=== PATIENT | male | born 1995 | race Caucasian/White ===

== ENCOUNTER 2022-12-14 09:35 | Emergency (ER) | payer BC, MEDICAID, SELFPAY ==
[2022-12-14 10:04] VITALS: BP 120/80; PULSE 70; RESP 18; TEMP 36.9; O2SAT 98; BMI 20.2
[2022-12-14 10:35] LABS: Basophils % 0.2 %; Eosinophils # 0.1 10^3/uL (0.0-0.8); Eosinophils % 0.9 %; Hematocrit 47.9 % (37-53); Lymphocytes # 2.4 10^3/uL (0.8-4.8); Lymphocytes % 23.2 %; Mean Corpuscular Hemoglobin 32.7 pg (27-33); Monocytes # 0.5 10^3/uL (0.2-0.9); Monocytes % 4.8 %; Neutrophils # 7.31 10^3/uL (1.8-7.7); Neutrophils % 70.5 %; Nucleated Red Blood Cells % 0 %; Platelet Count 269 10^3/cmm (157-399); Red Blood Count 4.99 10^6/uL (3.85-5.65); Red Cell Distribution Width 12.4 % (12.1-15.1); White Blood Count 10.36 10^3/uL (3.29-11.43)
[2022-12-14 10:51] LABS: Alanine Aminotransferase 17 U/L (0-41); Alkaline Phosphatase 85 U/L (40-130); Anion Gap 14.5 (5-19); Aspartate Amino Transferase 16 U/L (0-40); Blood Urea Nitrogen 19 mg/dL (6-20); Calcium 9.5 mg/dL (8.5-10.5); Carbon Dioxide 27 mmol/L (22-29); Chloride 101 mmol/L (98-107); Globulin 2.6 g/dL (1.3-4.6); Glomerular Filtration Rate 134.3 mL/min (90-130); Glucose 95 mg/dL (65-115); Lipase 16 U/L (13-60); Osmolality Calculated 288 mOsm/kg (285-295); Potassium 4.5 mmol/L (3.5-5.1); Sodium 138 mmol/L (136-145); Total Bilirubin 0.5 mg/dL (0.15-1.2); Total Protein 7.6 g/dL (6.6-8.7)
[2022-12-14] MEDS: sodium chloride 0.9% 1,000 ML 999 ML IV (11:04)
[2022-12-14] MEDS: ondansetron 2 mg/ML SDV 2 mL 4 MG IVP (11:04)
[2022-12-14 11:06] VITALS: BP 121/78; PULSE 71; O2SAT 98
--- NOTE | 2022-12-14 11:19 | ED_ITS ---
HPI - Nausea/Vomiting/Diarrhea General: Chief complaint: Nausea/Vomiting/Diarrhea Stated complaint: n/v Time Seen by Provider: 12/14/22 09:44 History of Present Illness: 27-year-old male presents emergency department with complaints of several episodes of nausea and vomiting over the previous 3 days. He states today his nausea and vomiting came much worse. He states that he does have multiple children at home with similar symptoms. He states that he has been recently exposed to sick contacts with similar illnesses. He states that he initially attempted to go to work but became nauseated and vomited and started having diarrhea. He states he was advised to come to the emergency department to be seen by his employer. Patient states he has intermittent abdominal cramping that he describes as a 2 out of 10 intermittent abdominal pain. He states that he is unable to keep any nutritional substance down as a soon as he has something to drink or eat he feels nauseated and vomits. Associated nausea: Yes Associated symtoms: Reports nausea Review of Systems General: Reports: 10 or more systems reviewed and unremarkable except in HPI and below GI: Reports: abdominal pain, nausea, vomiting and diarrhea Physical Exam Const: COMMON NORMALS: no acute distress, patient oriented x3, alert and well nourished HENMT: COMMON NORMALS: normocephalic, atraumatic, Normal external nose present and Normal nasal mucous membranes and turbinates present HEAD & SCALP: normocephalic and atraumatic NOSE: Normal external nose present and Normal nasal mucous membranes and turbinates present Eye: COMMON NORMALS: Equal, round and reactive pupils present and EOMs intact bilaterally PUPIL: Yes Equal, round and reactive pupils present Neck/C-Spine: COMMON NORMALS: full ROM, supple and no meningeal signs Chest: COMMONS NORMALS: normal inspection of the chest and normal palpation of entire chest wall Resp: COMMON NORMALS: normal respiratory effort and clear to auscultation bilaterally AUSCULTATION: clear to auscultation bilaterally Cardio: COMMON NORMALS: regular rate, regular rhythm, S1 normal heart sound present, S2 normal heart sound present and Peripheral pulses 2+ throughout RATE: regular rate RHYTHM: regular rhythm HEART SOUNDS: S1 normal heart sound present and S2 normal heart sound present PERIPHERAL PULSES: Peripheral pulses 2+ throughout GI: COMMON NORMALS: Normal to inspection, nondistended, normoactive bowel sounds present, Soft to palpation and non-tender PALPATION: Yes Soft to palpation : COMMON NORMALS: Yes no CVA tenderness BLADDER/KIDNEY EXAM: Yes no CVA tenderness Back/Pelvis: COMMON NORMALS: no CVA tenderness Extremity: COMMON NORMALS: normal to inspection, full ROM, capillary refill normal and no pedal edema Neuro: COMMON NORMALS: patient oriented x3, moves all extremities, no sensory deficits noted and gait normal SENSORIUM/ORIENTATION: Yes alert MENINGEAL SIGNS: Yes no meningeal signs Psych: COMMON NORMALS: mental status grossly normal, Normal thought process present and cooperative THOUGHT PROCESS: Normal thought process present Skin: COMMON NORMALS: no rashes or lesions noted GENERAL SKIN EXAM: no rashes or lesions noted Course Vital Signs: Vital signs: Vital Signs Temperature 98 F 12/14/22 12:02 Pulse Rate 71 12/14/22 12:02 Respiratory Rate 18 12/14/22 12:02 Blood Pressure 121/78 12/14/22 12:02 Pulse Oximetry 98 12/14/22 12:02 Oxygen Delivery Me thod Room Air 12/14/22 11:06 MDM - Nausea/Vomiting/Diarrhea Medical Decision Making Physical exam completed and documented, I will provide the patient IV antinausea medication and IV fluid rehydration. Given the patient's recent sick contacts and his association with viral gastroenteritis amongst his direct family members, we will provide laboratory evaluation to include a CBC and CMP to evaluate his electrolyte status given his nausea vomiting and diarrhea. I have provided him a work note and had extensive discussion with him about p.o. fluid intake and electrolyte replacement. Patient verbalized understanding of all information provided was discharged home in stable condition and in no acute distress with recommended follow-up with his PCP. He was advised he may return to the emergency department at any time for any reason or if his symptoms worsen or return. Medical Records I reviewed the patient's medical records. Lab Data I reviewed the patient's lab results. 12/14/22 10:24 12/14/22 10:24 Laboratory Results WBC 10.36 10^3/uL (3.29-11.43) 12/14/22 10:24 RBC 4.99 10^6/uL (3.85-5.65) 12/14/22 10:24 Hgb 16.30 g/dL (11.27-16.99) 12/14/22 10:24 Hct 47.9 % (37-53) 12/14/22 10:24 MCV 96.0 fl (82-101) 12/14/22 10:24 MCH 32.7 pg (27-33) 12/14/22 10:24 MCHC 34.0 g/dL (30-55) 12/14/22 10:24 RDW 12.4 % (12.1-15.1) 12/14/22 10:24 Plt Count 269 10^3/cmm (157-399) 12/14/22 10:24 MPV 9.0 fL (7.4-10.4) 12/14/22 10:24 Neut % (Auto) 70.5 % 12/14/22 10:24 Lymph % (Auto) 23.2 % 12/14/22 10:24 Maries % (Auto) 4.8 % 12/14/22 10:24 Eos % (Auto) 0.9 % 12/14/22 10:24 Baso % (Auto) 0.2 % 12/14/22 10:24 Neut # (Auto) 7.31 10^3/uL (1.8-7.7) 12/14/22 10:24 Lymph # (Auto) 2.4 10^3/uL (0.8-4.8) 12/14/22 10:24 Maries # (Auto) 0.5 10^3/uL (0.2-0.9) 12/14/22 10:24 Eos # (Auto) 0.1 10^3/uL (0.0-0.8) 12/14/22 10:24 Baso # (Auto) 0.0 10^3/uL (0.0-0.1) 12/14/22 10:24 Nucleated RBC % (auto) 0 % 12/14/22 10:24 Nucleated RBCs # 0.0 /100WBC 12/14/22 10:24 Sodium 138 mmol/L (136-145) 12/14/22 10:24 Potassium 4.5 mmol/L (3.5-5.1) 12/14/22 10:24 Chloride 101 mmol/L (98-107) 12/14/22 10:24 Carbon Dioxide 27 mmol/L (22-29) 12/14/22 10:24 Anion Gap 14.5 (5-19) 12/14/22 10:24 BUN 19 mg/dL (6-20) 12/14/22 10:24 Creatinine 0.7 mg/dL (0.7-1.2) 12/14/22 10:24 GFR Calculation 134.3 mL/min (90-130) H 12/14/22 10:24 Glucose 95 mg/dL (65-115) 12/14/22 10:24 Calculated Osmolality 288 mOsm/kg (285-295) 12/14/22 10:24 Calcium 9.5 mg/dL (8.5-10.5) 12/14/22 10:24 Total Bilirubin 0.5 mg/dL (0.15-1.2) 12/14/22 10:24 AST 16 U/L (0-40) 12/14/22 10:24 ALT 17 U/L (0-41) 12/14/22 10:24 Alkaline Phosphatase 85 U/L (40-130) 12/14/22 10:24 Total Protein 7.6 g/dL (6.6-8.7) 12/14/22 10:24 Albumin 5.0 g/dL (3.5-5.2) 12/14/22 10:24 Globulin 2.6 g/dL (1.3-4.6) 12/14/22 10:24 Lipase 16 U/L (13-60) 12/14/22 10:24 No radiology studies performed this visit Discharge Plan Discharge Patient Disposition: Home Clinical Impression: Gastroenteritis Condition: Stable Prescriptions: New ondansetron 4 mg tablet,disintegrating 4 mg PO Q8H 5 Days Qty: 15 0RF Discharge Orders: Discharge ED (Routine); Ordered 12/14/22 Ordered By: Berhane Cisneros Discharge Diet: Advance as tolerated Discharge Activity: Resume usual activity Patient Instructions: Opioid Safety, Pain Management Stand Alone Forms: Work/School Release Coding Level of Care Code ED [employer] for [employer] [place]
[2022-12-14 12:02] VITALS: BP 121/78; PULSE 71; RESP 18; TEMP 36.6; O2SAT 98
== END 2022-12-14 12:15 | disposition home or self-care (01) ==
PROVIDERS: Family Medicine; Emergency Provider Internal Medicine
DX: K52.9 Noninfective gastroenteritis and colitis, unspecified (principal)
CPT/HCPCS: 36415; 80053; 83690; 85025; 96374; 99284; J2405; J7030